=== PATIENT | male | born 1990 | race Caucasian/White ===

== ENCOUNTER 2017-11-12 23:34 | Emergency (ER) | payer MEDICAID | END 2017-11-13 01:36 | disposition home or self-care (01) | LOC: FTE 23:34 | DX: J02.9 Acute pharyngitis, unspecified (principal); R07.9 Chest pain, unspecified | CPT/HCPCS: 93005; 99283-25 ==

== ENCOUNTER 2017-12-22 22:51 | Emergency (ER) | payer MEDICAID ==
[2017-12-23] MEDS: LIDOCAINE/MYLANTA 40 ML BTL PO (01:03)
== END 2017-12-23 01:30 | disposition home or self-care (01) ==
LOC: FTE 22:51
DX: K21.9 Gastro-esophageal reflux disease without esophagitis (principal)
CPT/HCPCS: 99283; Z7502